=== PATIENT | male | born 1960 | race Caucasian/White ===

== ENCOUNTER 2017-05-10 07:45 | Emergency (ER) | payer OTHER ==
[~2017-05-10] VITALS: Wt 73.5 kg
[2017-05-10] MEDS ORDERED: KETOROLAC 30 MG INJ IM STA (08:06)
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
[2017-05-10] MEDS ORDERED: NAPR-260 PO (08:46)
[2017-05-10] MEDS ORDERED: TRAZ100T15 PO (08:51)
[2017-05-10] MEDS ORDERED: DOCU-144 PO (08:51)
[2017-05-10] MEDS ORDERED: MIRT30TA5 PO (08:51)
[2017-05-10] MEDS ORDERED: OMEP20CA16 PO (08:51)
[2017-05-10] MEDS ORDERED: ATAZ1TAB PO (08:55)
[2017-05-10] MEDS ORDERED: EMTR1TAB16 PO (08:55)
== END 2017-05-10 09:38 | disposition home or self-care (01) ==
LOC: FTE 07:45
DX: M54.5 Low back pain (principal); Z59.0 Homelessness
CPT/HCPCS: 96372; 99284; J1885

== ENCOUNTER 2017-05-31 09:06 | Emergency (ER) | payer OTHER ==
[~2017-05-31] VITALS: Ht 152.4 cm; Wt 67.5 kg
[~2017-05-31 09:06] MED LIST: ATAZ1TAB PO; DOCU-144 PO; EMTR1TAB16 PO; MIRT30TA5 PO; NAPR-260 PO; OMEP20CA16 PO; TRAZ100T15 PO
[2017-05-31 09:14] VITALS: Ht 152.4 cm; Wt 67.5 kg
--- NOTE | 2017-05-31 10:11 | ERD ---
ER Documentation Chief Complaint Date/Time DATE: 05/31/17 TIME: 10:04 Chief Complaint Compkains of an abscess/ulcer to scrotal sac HPI 57-year-old male who presents emergency department complaining of abscess to his scrotal area for 7 days. Patient stated it started out as a pimple, he pricked it, got bigger. On antibiotics/ciprofloxacin for 3 days. Denies headache, dizziness, blurry vision, neck pain, difficulty swallowing, chest pain, back pain, nausea, vomiting, diarrhea, constipation, dysuria, trauma , loss of bowel and bowel control, recent travel, recent exposure to any illness , being sexually active, recent long travel, fever, chills. Allergies to sulfa. Past medical history of HIV. Surgical history of back surgeries. Not working at this time. Smokes 2 sticks of cigarettes a day. Denies use of alcohol, use of illegal drugs. ROS All systems reviewed and are negative except as per history of present illness. Medications Home Meds Active Scripts Atazanavir Sulfate/Cobicistat (Evotaz 300 mg-150 mg Tablet) 1 Each Tablet, 1 EACH PO DAILY, #30 TAB Prov:JOAQUINA MACE PA-C 05/10/17 Emtricitabine/Tenofov Alafenam (Descovy 200-25 mg Tablet) 1 Each Tablet, 1 EACH PO DAILY, #30 TAB Prov:JOAQUINA MACE PA-C 05/10/17 Omeprazole* (Omeprazole*) 20 Mg Capsule.dr, 20 MG PO DAILY, #30 CAP Prov:JOAQUINA MACE PA-C 05/10/17 Docusate Sodium* (Colace*) 100 Mg Capsule, 100 MG PO BID, #60 CAP Prov:JOAQUINA MACE PA-C 05/10/17 Mirtazapine* (Mirtazapine*) 30 Mg Tablet, 30 MG PO DAILY, #30 TAB Prov:JOAQUINA MACE PA-C 05/10/17 Trazodone Hcl* (Trazodone Hcl*) 100 Mg Tablet, 100 MG PO QHS, #30 TAB Prov:JOAQUINA MACE PA-C 05/10/17 Naproxen* (Naprosyn*) 500 Mg Tablet, 500 MG PO BID Y for PAIN AND/OR INFLAMMATION, #30 TAB Prov:JOAQUINA MACE PA-C 05/10/17 Allergies Allergies: Coded Allergies: Sulfa (Sulfonamide Antibiotics) (Verified Allergy, Severe, ANAPHYLAXIS, 07/17) PMhx/Soc History of Surgery: Yes (back sx) Anesthesia Reaction: No Hx Neurological Disorder: No Hx Respiratory Disorders: No Hx Cardiac Disorders: No Hx Psychiatric Problems: No Hx Miscellaneous Medical Probl: Yes (OSTEOMYELITIS, HIV, BACK/SHOULDER DEGENERATION, GERD) Hx Alcohol Use: No Hx Substance Use: No Hx Tobacco Use: Yes Smoking Status: Never smoker Physical Exam Vitals Vital Signs Date Time Temp Pulse Resp B/P Pulse Ox O2 Delivery O2 Flow Rate FiO2 05/31/17 09:14 98.6 106 20 130/76 98 Physical Exam Const: [] Head: Atraumatic Eyes: Normal Conjunctiva ENT: Normal External Ears, Nose and Mouth. Neck: Full range of motion..~ No meningismus. Resp: Clear to auscultation bilaterally Cardio: Regular rate and rhythm, no murmurs Abd: Soft, non tender, non distended. Normal bowel sounds Skin: No petechiae or rashes : Penile area has no swelling. External urethral meatus has no bleeding, no discharges. No testicular swelling/discoloration/tenderness. Equal distribution of hair. Inferior area of the scrotal area swelling with drainage yellowish discharge. And has tenderness to palpation. Back: No midline or flank tenderness Ext: No cyanosis, or edema Neur: Awake and alert Psych: Normal Mood and Affect Results 24 hrs Current Medications Medications (Trade) Dose Ordered Sig/Parvez Route PRN Reason Start Time Stop Time Status Last Admin Dose Admin Ceftriaxone Sodium (Rocephin) 1 gm ONCE ONCE IM 05/31/17 10:30 05/31/17 10:31 DC 05/31/17 10:59 Procedures/MDM 57-year-old male who presents emergency department complaining of abscess to his scrotal area for 7 days. Patient stated it started out as a pimple, he pricked it, got bigger. On antibiotics/ciprofloxacin for 3 days. No trauma. Physical examination revealed the patient has a swelling to/below his scrotal area, greenish discharge. No penile bleeding. No evidence of trauma. Plan of care: Ultrasound and scrotal area. Urinalysis. Ceftriaxone IM. Wound culture. Ultrasound of the scrotum and testicles revealed unremarkable testicles. 3 mm simple cyst in the left epididymis. Focal scrotal wall thickening and edema at a potential wound site. Finding could reflect focal inflammation. Case was discussed with supervising physician, Dr. Jonas Gaines who agreed in my medical decision making to discharge the patient and prescribe him with doxycycline in addition to clindamycin and add a pain medicine. I was about explained to the patient his ultrasound result and plan of care when they found out that the patient ready eloped. Last seen by primary care nurse and said that patient was hemodynamically stable. Departure Diagnosis: Primary Impression: Scrotal abscess Condition: Stable MIGDALIA BRAVO May 31, 2017 10:11
[2017-05-31] MEDS ORDERED: CEFTRIAXONE 1 GM INJ IM ONE (10:30)
--- NOTE | 2017-05-31 11:09 | RADRPT ---
PROCEDURE: US Scrotum and Testicles. CLINICAL INDICATION: Scrotal pain. TECHNIQUE: Multiple sonographic images of the scrotal region were obtained utilizing a linear arra y transducer with grayscale, color-flow and Doppler imaging. The images were reviewed on a high-reso i[employer] PACS workstation. COMPARISON: No prior studies are available for comparison. FINDINGS: The right testicle measures 4.2 x 2.0 x 3.2 cm. The left testicle measures 4.7 x 1.8 x 3.0 cm. The testicles demonstrate a normal echogenicity and vascularity. The right epididymis measures 1.4 cm in length. The left epididymis measures 1.6 cm in length. A 3 mm simple cyst is seen in the left epididymis. The right epididymis is unremarkable. Focal scrotal wall thickening and heterogeneity measuring up to approximately 1.1 cm is identified a t a potential wound site. IMPRESSION: Unremarkable testicles. 3 mm simple cyst in the left epididymis. Focal scrotal wall thickening and edema at a potential wound site. Finding could reflect focal infl ammation. RPTAT: AA .Efrain Allred MD, MD Date Time Electronically viewed and signed by .Efrain Allred MD, MD on 05/31/2017 11:08 .P/
[2017-05-31 11:52] LABS: ADD UMIC NO; UR ASCORBIC ACID NEGATIVE (NEGATIVE); UR BILIRUBIN (Dip) NEGATIVE (NEGATIVE); UR BLOOD (Dip) NEGATIVE (NEGATIVE); UR CLARITY CLEAR (CLEAR); UR COLOR YELLOW (YELLOW); UR GLUCOSE (Dip) NEGATIVE (NEGATIVE); UR KETONES (Dip) NEGATIVE (NEGATIVE); UR LEUKOCYTE ESTERASE (Dip) NEGATIVE Leu/ul (NEGATIVE); UR NITRITE (Dip) NEGATIVE (NEGATIVE); UR SPECIFIC GRAVITY (Dip) 1.018 (1.003-1.030); UR TOTAL PROTEIN (Dip) NEGATIVE (NEGATIVE); UR UROBILINOGEN (Dip) 2+ mg/dL (NEGATIVE)
== END 2017-05-31 12:16 | disposition left against medical advice (07) ==
LOC: FTE 09:06
DX: N49.2 Inflammatory disorders of scrotum (principal); F17.210 Nicotine dependence, cigarettes, uncomplicated
CPT/HCPCS: 76870; 81003; 96372; J0696; Z7502